=== PATIENT | female | born 1965 | race Caucasian/White ===

== ENCOUNTER → 2016-06-17 | Outpatient (CLI) | payer OTHER ==
[~2016-06-17] MED LIST: ACYC1CAP8 PO; ACYC400T PO; ALBU18002 INH; ALBU1AER9 INH; ASPI-435; ASPI81TA28 PO; AZELAIC ACID; CEPH500C PO; ETOD400T PO; FLUT0.0529 NAE; FLUT0.15 NAE; IMIP10TA2 PO; LYSI100014 PO; MAGN400T6 PO; METR0.754 EXT; MULT-506 PO; OMEG10007 PO; PROM12.57 PO; PROM25TA16 PO; TOPI50TA16 PO; TPM/50 PO; VALA1TAB PO
== END | disposition home or self-care (01) ==
LOC: C.PAPS 14:58
PROVIDERS: ATTEND Obstetrics & Gynecology
DX: Z01.419 Encounter for gynecological examination (general) (routine) without abnormal findings (principal)

== ENCOUNTER → 2016-12-31 | Outpatient (CLI) | payer OTHER ==
--- NOTE | 2016-12-31 12:47 | MAMMOGRAPHY REPORT ---
BILATERAL DIGITAL SCREENING MAMMOGRAM TOMOSYNTHESIS WITH CAD: 12/31/2016 CLINICAL HISTORY: Routine screening. Patient has no complaints. TECHNIQUE: Breast tomosynthesis in addition to standard 2D mammography was performed. Current study was also evaluated with a Computer Aided Detection (CAD) system. COMPARISON: Comparison is made to exams dated: 09/16/2015 mammogram, 09/13/2014 mammogram - [facility], 01/06/2013 mammogram, 07/06/2011 mammogram, 04/01/2010 mammogram, and 03/27/2009 mammo gram. BREAST COMPOSITION: The tissue of both breasts is extremely dense, which lowers the sensitivity of m ammography. FINDINGS: No suspicious masses, calcifications, or areas of architectural distortion are noted in ei ther breast. There has been no significant interval change compared to prior exams. Bilateral benign -appearing calcifications are not significantly changed. A biopsy marker clip is again noted in the right upper outer quadrant. Again noted are fluctuating round/oval benign appearing partially circum scribed and partially obscured masses in bilateral breasts, which are considered benign given the mul tiplicity and bilaterality and likely represent cysts. IMPRESSION: ACR BI-RADS CATEGORY 2: BENIGN There is no mammographic evidence of malignancy. A 1 year screening mammogram is recommended. The pa tient will receive written notification of the results. Approximately 10% of breast cancers are not detected with mammography. A negative mammographic report should not delay biopsy if a clinically suggestive mass is present. Zaida Almazan M.D. ah/:12/31/2016 07:54:50 Web Site Administrator: Gale ROSS(Giuseppe)(Hans), [facility] letter sent: Normal 1/2 BI-RADS Code: ACR BI-RADS Category 2: Benign
== END | disposition home or self-care (01) ==
LOC: C.MAMM 07:30
PROVIDERS: ATTEND Internal Medicine
DX: Z12.31 Encounter for screening mammogram for malignant neoplasm of breast (principal)

== ENCOUNTER 2017-01-05 20:23 | Emergency (ER) | payer OTHER ==
[~2017-01-05] VITALS: Ht 167.6 cm; Wt 70.7 kg
[~2017-01-05 20:23] MED LIST changes: -ACYC400T PO; -ALBU18002 INH; -ASPI81TA28 PO; -CEPH500C PO; -FLUT0.15 NAE; -PROM25TA16 PO; -TPM/50 PO
[2017-01-05 20:26] VITALS: TEMP 36.9; Ht 167.6 cm; Wt 70.7 kg
[2017-01-05] MEDS ORDERED: ASPI81TA28 PO (21:20)
[2017-01-05] MEDS ORDERED: TPM/50 PO (21:20)
[2017-01-05] MEDS ORDERED: ALBU18002 INH (21:20)
[2017-01-05] MEDS ORDERED: PROM25TA16 PO (21:20)
[2017-01-05] MEDS ORDERED: FLUT0.15 NAE (21:21)
[2017-01-05] MEDS ORDERED: ACYC400T PO (21:30)
[2017-01-05] MEDS ORDERED: LIDOCAINE/EPINEPH/TETRACAINE 1 EA SYR ONE (22:30)
[2017-01-05] MEDS ORDERED: LIDOCAINE/EPINEPH/TETRACAINE 1 EA SYR EXT STA (22:34)
[2017-01-05] MEDS ORDERED: CEPH500C PO (23:42)
--- NOTE | 2017-01-05 23:44 | EMERGENCY ROOM VISIT NOTE ---
ED Visit Note First contact with patient: 21:16 CHIEF COMPLAINT: Lip laceration HISTORY OF PRESENT ILLNESS: This 51-year-old female patient presents to the emergency department with her after cutting the lower lip on a trash can this evening around 7:30 PM. Patient states she was taking out the trash when she tripped, lunging forward and striking her lower lip on the edge of the metal trash can. She denies any other injuries, no loss of consciousness. The bleeding has stopped. She denies any loose or broken teeth, denies any injury inside the mouth or to the tongue. The patient rates the pain as constant and 3 /10. The patient denies any other injuries. The patient's Tetanus shot is up to date. REVIEW OF SYSTEMS: A 6 system review of systems was completed with positives and pertinent negatives listed in the HPI. ALLERGIES: See chart MEDICATIONS: See chart PMH: See chart SOCIAL HISTORY: See chart PHYSICAL EXAM: Vital Signs: Reviewed Nurse's notes, vital signs stable. GENERAL : Pleasant and cooperative, in no acute distress, well-developed, well- nourished. SKIN: There is a 1.5 cm long deep laceration on the buccal mucosa of the lower lip, that appears to be through and through with a small laceration noted on the chin just below the lip. The edges gape apart with traction. There is no foreign material in the wound and it looks clean. There is minimal bleeding. No deep structures such as tendons, bones, or significant blood vessels are seen in the base of the wound. There is moderate swelling and some bruising noted to the lower lip. The remainder of the mouth was explored, no broken or loose teeth noted, no lacerations to the tongue. EMERGENCY DEPARTMENT COURSE: I examined the patient. Verbal consent was obtained to perform the procedure. Using sterile technique the wound was cleansed with Betadine. The area was sterilely draped. LET gel was applied to anesthetize the laceration on the lower lip. Once the patient was anesthetized, the wound was copiously irrigated under pressure with sterile saline. The wound was explored and was as described above. The laceration was repaired using one buried suture of 5-0 Vicryl with the wound edges being well approximated and bleeding controlled. The patient tolerated the procedure well. The area was cleaned with sterile saline and left open. The patient was offered ibuprofen for pain, she declines this and states she will take her own medication at home. The patient was discharged home in good condition. Current/Historical Medications Scheduled Aspirin (Aspirin Ec), 81 MG PO DAILY Cephalexin Monohydrate (Keflex), 500 MG PO TID Fish Oil ([place]-3), 1 CAP PO DAILY Lysine Hcl (L-Lysine), 1,000 MG PO DAILY Magnesium Oxide (Mag-Ox), 800 MG PO DAILY Multivitamin (Multivitamin), 1 TAB PO DAILY Topiramate (Topamax), 50 MG PO QAM Scheduled PRN Acyclovir (Acyclovir), 400 MG PO UD PRN for Cold Sores Albuterol Sulfate (Proair Respiclick), 2 PUFFS INH Q4-6HRS PRN for Asthma Symptoms Etodolac (Etodolac), 400 MG PO TID PRN for Headache Fluticasone Propionate (Nasal) (Flonase Allergy Relief), 1 SPRAY BREANA DAILY PRN for Nasal Congestion Promethazine HCl (Promethazine HCl), 25 MG PO TID PRN for Nausea Allergies Uncoded Allergies: CONTRAST MEDIA (Allergy, Unknown, ANAPHYLAXIS, 12/18/14) Vital Signs Date Time Temp Pulse Resp B/P (MAP) Pulse Ox O2 Delivery O2 Flow Rate FiO2 01/05/17 23:48 76 18 146/97 99 01/05/17 20:26 36.9 82 18 151/88 100 Room Air Medications Administered Medications (Trade) Dose Ordered Sig/Cecilio Route Start Time Stop Time Status Last Admin Dose Admin Cephalexin Monohydrate (Keflex Cap) 500 mg NOW ONCE PO 01/05/17 23:45 01/05/17 23:46 DC 01/05/17 23:44 500 MG Departure Information Impression Primary Impression: Laceration of lower lip Dispostion Home / Self-Care Condition GOOD Prescriptions Cephalexin Monohydrate (Keflex) 500 Mg Cap 500 MG PO TID for 5 Days, #15 CAP Prov: Amelia Pierre CRNP 01/05/17 Referrals Theresa Simon M.D. (PCP) Patient Instructions [facility] Additional Instructions Ice and elevate for swelling and pain. Ibuprofen 600 mg or Tylenol 1000 mg every 8 hrs as needed for pain. You had absorbable stitches placed in your lip, you do not need to have them removed. Keflex (antibiotic) 3 times a day for 5 days to help prevent infection. Follow-up with your PCP as needed. Please seek immediate medical attention for any signs of infection (increasing redness, swelling, pus drainage, fever/chills). Problem Qualifiers Primary Impression: Laceration of lower lip Encounter type: initial encounter Qualified Codes: S01.511A - Laceration without foreign body of lip, initial encounter
[2017-01-05] MEDS ORDERED: CEPHALEXIN MONOHYDRATE 250 MG CAP PO ONE (23:45)
[2017-01-05 23:48] VITALS: BP 146/97; PULSE 76; O2SAT 99
== END 2017-01-05 23:49 | disposition home or self-care (01) ==
LOC: C.EDB 20:24 → C.EDD 23:49
DX: S01.511A Laceration without foreign body of lip, initial encounter (principal); W01.10XA Fall on same level from slipping, tripping and stumbling with subsequent striking against unspecified object, initial encounter; Y92.098 Other place in other non-institutional residence as the place of occurrence of the external cause

== ENCOUNTER → 2017-01-08 | Outpatient (CLI) | payer OTHER ==
[~2017-01-08] MED LIST changes: -ACYC1CAP8 PO; +ACYC400T PO; +ALBU18002 INH; -ALBU1AER9 INH; -ASPI-435; +ASPI81TA28 PO; -AZELAIC ACID; +CEPH500C PO; -FLUT0.0529 NAE; +FLUT0.15 NAE; -IMIP10TA2 PO; -METR0.754 EXT; -PROM12.57 PO; +PROM25TA16 PO; -TOPI50TA16 PO; +TPM/50 PO; -VALA1TAB PO
--- NOTE | 2017-01-08 13:49 | DIAGNOSTIC IMAGING REPORT ---
SOFT TISS HEAD/NECK-THYROID CLINICAL HISTORY: 51 years-old Female with E04.2 Multinodular thyroid COMPARISON: Thyroid ultrasound 08/23/2014 TECHNIQUE: Multiple real time sonographic images of the thyroid were obtained accessing alfaro scale appearance and color doppler flow. FINDINGS: MEASUREMENTS: Right lobe: 7.5 x 2.1 x 1.5 cm Left lobe: 6.1 x 1.6 x 1.5 cm Isthmus: 0.4 cm PARENCHYMA: The thyroid parenchymal echotexture is diffusely heterogeneous. NODULES: There are in numerable colloid cysts and nodules throughout the thyroid parenchyma. The largest nodule on the right is hypoechoic and appears prominently solid oriented tolerated and wide within the mid pole, 1.0 x 1.5 x 0.9 cm containing internal echogenicities suggesting colloid. This likely correlates with the 1.1 cm nodule measured on comparison study. The largest nodule of the left thyroid measures 1.8 x 0.7 x 1.3 cm within the mid pole and is primarily homogeneous, circumscribed and isoechoic with low suspicion features. IMPRESSION: Multinodular thyroid as above with a 1.5 cm right thyroid and 1.8 cm left thyroid nodules identified which are likely benign, however could be further evaluated with FNA. The above report was generated using voice recognition software. It may contain grammatical, syntax or spelling errors. Electronically signed by: Lincoln Alan M.D. 01/08/2017 1:48 PM Dictated Date/Time: 01/08/2017 1:43 PM
== END | disposition home or self-care (01) ==
LOC: C.ULTR 13:05
PROVIDERS: ATTEND Internal Medicine
DX: E04.2 Nontoxic multinodular goiter (principal)

== ENCOUNTER → 2017-09-16 | Outpatient (CLI) | payer OTHER ==
[~2017-09-16] MED LIST changes: -CEPH500C PO
--- NOTE | 2017-09-16 13:40 | DIAGNOSTIC IMAGING REPORT ---
LEFT FOOT 3 VIEWS HISTORY: M79.672 Acute foot pain, left COMPARISON: None. FINDINGS: No acute fracture or dislocation. Soft tissues are unremarkable. Small ossific density along the dorsal aspect of the anterior talus. This is consistent with an old avulsion injury. Tiny plantar heel spur. Mild osteoarthritis the first MTP joint. 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 There is associated soft tissue and bony bunion. IMPRESSION: 1. No acute fracture or dislocation. 2. Mild osteoarthritis at the first MTP joint. 3. 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 There is associated soft tissue and bony bunion. Electronically signed by: Casper Gold M.D. 09/16/2017 1:38 PM Dictated Date/Time: 09/16/2017 1:36 PM
== END | disposition home or self-care (01) ==
LOC: C.RAD1850 13:28
PROVIDERS: ATTEND Nurse Practitioner
DX: M79.672 Pain in left foot (principal); M20.12 Hallux valgus (acquired), left foot